=== PATIENT | female | born 1990 | race African-American/Black ===

== ENCOUNTER 2020-10-13 03:08 | Emergency (ER) | payer SELFPAY ==
[~2020-10-13] VITALS: Ht 170.2 cm; Wt 86.0 kg
[2020-10-13] MEDS ORDERED: FAMOTIDINE 20MG TABLET PO ONE (05:15)
[2020-10-13] MEDS ORDERED: ONDANSETRON 4MG ODT PO ONE (05:15)
[2020-10-13 08:33] VITALS: BP 128/88
== END 2020-10-13 08:36 | disposition home or self-care (01) ==
LOC: ER 03:08
DX: A05.9 Bacterial foodborne intoxication, unspecified (principal)
CPT/HCPCS: 93005; 99283; Q0162